=== PATIENT | male | born 1950 | race Caucasian/White ===

== ENCOUNTER 2021-12-16 08:00 | Outpatient (NON) | payer MEDICARE, OTHER, SELFPAY | END 2021-12-16 08:01 | disposition home or self-care (01) | LOC: ANHLAB 12-17 12:08 | PROVIDERS: PCP Emergency Medicine; Visit Provider Nurse Practitioner | DX: C44.719 Basal cell carcinoma of skin of left lower limb, including hip (principal) | CPT/HCPCS: 88305 ==

== ENCOUNTER 2022-10-19 14:06 | Outpatient (NON) | payer MEDICARE, OTHER, SELFPAY | END 2022-10-19 14:07 | disposition home or self-care (01) | LOC: ANHLAB 14:06 | PROVIDERS: PCP Emergency Medicine; Visit Provider Nurse Practitioner | DX: C44.719 Basal cell carcinoma of skin of left lower limb, including hip (principal) | CPT/HCPCS: 88305; 88331 ==

== ENCOUNTER 2022-12-03 08:00 | Outpatient (NON) | payer MEDICARE, OTHER, SELFPAY | END 2022-12-03 08:01 | disposition home or self-care (01) | LOC: ANHLAB 12-04 12:57 | PROVIDERS: PCP Emergency Medicine; Visit Provider Nurse Practitioner | DX: C44.329 Squamous cell carcinoma of skin of other parts of face (principal) | CPT/HCPCS: 88305 ==